=== PATIENT | female | born 1985 | race Caucasian/White ===

== ENCOUNTER 2020-09-01 21:41 | Emergency (ER) | payer OTHER ==
[~2020-09-01 21:41] MED LIST: AUGMENTIN 875-1 EACH PO; IBUPROFEN600 MG PO; NORCO 5-325 TA1 EACH PO
[2020-09-01 22:48] LABS: HEMOGLOBIN 13.8 gm/dl (12.3-15.3); RED BLOOD COUNT 4.48 M/UL (4.00-5.10); WHITE BLOOD COUNT 8.2 K/UL (4.5-11.0)
[2020-09-01 23:08] LABS: BUN/CREATININE RATIO 6 (0-10)
[2020-09-02 01:12] LABS: BUN/CREATININE RATIO 7 (0-10)
== END 2020-09-02 04:43 | disposition home or self-care (01) ==
LOC: ER1 21:41
PROVIDERS: Emergency Medicine
DX: E11.65 Type 2 diabetes mellitus with hyperglycemia (principal)
CPT/HCPCS: 71045; 80053; 82009; 82550; 82553; 82962; 84484; 85025; 93005; 96374; 99285; Q9967